=== PATIENT | male | born 1945 | race Two or more races ===

== ENCOUNTER → 2020-01-07 09:49 | Outpatient (BNVA) | payer MEDICARE, SELFPAY | PROVIDERS: PCP Family Medicine; Referring Provider Family Medicine; Visit Provider Internal Medicine Cardiovascular Disease | DX: I48.20 Chronic atrial fibrillation, unspecified (principal); I51.7 Cardiomegaly; Z79.899 Other long term (current) drug therapy | CPT/HCPCS: 93005; 99214 ==

== ENCOUNTER → 2020-01-24 09:32 | Outpatient (REF) | payer MEDICARE, SELFPAY ==
--- NOTE | 2020-01-24 09:37 | ECG_ITS ---
Hook-up date: 2020-01-24 10:25:00 Duration: :28:00 Test Indications: CHRONIC AFIB Medications: [id number] QRS complexes 90 Ventricular ectopics which represent <1 % of total QRS comp. * Supraventricular ectopics which represent % of total QRS comp. * Paced QRS complexs which represent % of total QRS comp. VENTRICULAR ECTOPY 86 Isolated 0 Bigeminal Cycles 2 Couplets 0 Runs 0 Beats in Runs * Beats LONGEST at * BPM at :: -- * Beats FASTEST at * BPM at :: -- SUPRAVENTRICULAR ECTOPY * Isolated * Couplets * Runs * Beats in Runs * Beats LONGEST at * BPM at :: -- * Beats FASTEST at * BPM at :: -- HEART RATES 35 MIN at 03:46:32 2020-01-25 70 AVG 154 MAX at 12:48:37 2020-01-24 LONGEST RR 3.6880 secs at 17:26:03 2020-01-24 S-T LEVELS Channel 1 - 128 mm at 10:25:00 2020-01-24 - 128 mm at 10:25:00 2020-01-24 Channel 2 - 128 mm at 10:25:00 2020-01-24 - 128 mm at 10:25:00 2020-01-24 Channel 3 - 128 mm at 02:94:41 -- - 128 mm at 02:94:41 Basic rhythm Atrial fibrillation No significant pasues greater than 5 seconds. Good rate control with average HR of 70 bpm Rare Premature ventricular complexes Patient did not report any symptoms in the diary Referred By: Floyd Veras Overread By: FLOYD VERAS MD
--- NOTE | 2020-01-24 09:37 | CA_ITS ---
Transthoracic Echocardiogram Patient (Last, First, Middle): Evaristo Rdz L Gender: Male Date of : 1945 Age: 74 Procedure Date: 01/24/2020 Procedure Type: Transthoracic Echocardiogram Location: OP Height: 175.26 cm Weight: 77.11 kg BSA: 1.93 m2 Heart Rate: bpm BP: 126 / 78 mmHg Developer Advocate: EDUARDO Referring MD: Floyd Veras MD Baker Bread: Floyd Veras MD Symptoms: I48.20 - Chronic atrial fibrillation, unspecified Study Quality: Good ECG Rhythm: Atrial Fibrillation Conclusions: - 1. Normal LV systolic function 2. Moderate biatrial enlargement 3. Moderate tricuspid regurgitation 4. Normal RV systolic pressure 5. No pericardial effusion Findings Left Ventricle Normal left ventricular size, thickness, and systolic function. The visually estimated ejection fraction is between 55-60%. Diastolic function is indeterminate on the basis of available data. Right Ventricle Normal right ventricular cavity size. There is normal right ventricular systolic function. Atria Moderate biatrial enlargement. There is no evidence of interatrial shunt. Aortic Valve There is mild thickening of the aortic valve. There is no aortic valve stenosis. There is no aortic valve regurgitation. Mitral Valve There is mild anterior and posterior mitral leaflet thickening. There is trace mitral valve regurgitation. There is no mitral valve stenosis. Pulmonic Valve The pulmonic valve is likely normal. Tricuspid Valve Normal tricuspid valve structure. There is moderate tricuspid valve regurgitation. The right ventricular systolic pressure is normal. Normal right atrial pressure. There is no evidence of pulmonary hypertension. Great Vessels All visible segments of the aorta are normal in size. The pulmonary artery was not well visualized. Venous The inferior vena cava is normal in size and collapses greater than 50% with inspiration. Pericardium/Pleural There is no evidence of pericardial effusion. Prior Study Comparison Changes noted compared to prior study dated: 01/09/2019. Moderate biatrial enlargement noted. Also moderate tricuspid regurgitation noted Measurements 2D Linear Measurements IVSd: 0.95 0.6-0.9/0.6-1.0 cm LVIDd: 4.79 3.9-5.3/4.2-5.9 cm LVIDd Index: 2.48 2.4-3.2/2.2-3.1 cm/m2 LVIDs: 3.16 2.0-3.6 cm LVPWd: 1.02 0.7-1.1 cm Ao Root: 3.20 2.1-3.5 cm LA Diam: 3.90 2.7-3.8/3.0-4.0 cm LAIDs Index: 2.02 1.5-2.3 cm/m2 LV Mass: 207.40 67-162/88-224 g LV Mass Index: 107.46 43-95/49-115 g/m2 LVOT Diam: 2.10 3.0+(-)1.3 cm 2D Systolic Function EF 4C: 62.80 >55% Mitral Valve MV Pk E: 0.66 MV Decel Time: 152.00 E'Lateral: 12.90 E'Medial: 10.40 E/E' Med: 6.30 E/E' Lat: 5.10 PHT: 45.00 MVA PHT: 4.89 Decel Clay: 4.47 Aortic Valve AoV Pk Juan: 0.80 AoV Pk Grad: 3.00 LVOT LVOT Pk Juan: 0.74 LVOT Mn Juan: 0.47 LVOT VTI: 0.14 LVOT Pk Grad: 2.00 LVOT Mn Grad: 1.00 LVOT Diam: 2.10 LVOT Area: 3.46 Diastolic Function MV Pk E: 0.66 E'Medial: 10.40 E/E' Med: 6.30 E' Laterial: 12.90 E/E' Lat: 5.10 Tricuspid Valve TR Pk Juan: 2.88 TR Pk Grad: 33.00 RA Press: 3.00 RVSP: 36.00 Great Vessels Aorta Ao Root-2D: 3.20 2.0-3.7 cm Ao Asc: 2.90 2.1-3.4 cm Updated in Other Vendor System with Status of Final Floyd Veras MD electronically signed on 01/25/2020 2:36:54 PM with status of Final
== END ==
LOC: HO.CARD 09:32
PROVIDERS: Visit Provider Internal Medicine Cardiovascular Disease
DX: I48.20 Chronic atrial fibrillation, unspecified (principal); I51.7 Cardiomegaly
CPT/HCPCS: 93225; 93226; 93306

== ENCOUNTER 2020-05-06 09:43 | Outpatient (REF) | payer MEDICARE, SELFPAY ==
[2020-05-06 10:54] LABS: Estimated Average Glucose 126 mg/dL
[2020-05-06 11:08] LABS: Anion Gap 13 (12-20); Blood Urea Nitrogen 17 mg/dL (9-16); Carbon Dioxide 24 mmol/L (22-29); Chloride 105 mmol/L (96-108); Estimated Glomerular Filt Rate 58; Glucose Fasting 123 mg/dL (60-99); Potassium 4.2 mmol/L (3.3-5.1); Sodium 138 mmol/L (135-145)
== END 2020-05-06 09:44 | disposition home or self-care (01) ==
LOC: HO.10HDL 09:43
PROVIDERS: Visit Provider Family Medicine
DX: I10 Essential (primary) hypertension (principal); E11.9 Type 2 diabetes mellitus without complications
CPT/HCPCS: 36415; 80051; 82565; 82947; 83036; 84520

== ENCOUNTER 2020-11-11 07:54 | Day surgery (SDC) | payer MEDICARE, SELFPAY ==
[2020-11-05 15:24] VITALS: BMI 25.1
[2020-11-11 08:06] VITALS: BP 127/82; PULSE 74; RESP 16; TEMP 36.3; O2SAT 100
[2020-11-11] MEDS: Lactated Ringers 1,000 ML 50 ML IVCONT (08:29)
--- NOTE | 2020-11-11 08:59 | HO.ANESPROP2 ---
[facility] Active Problems Active Problems: All Active Problems (Updated 11/05/20 @ 15:26 by Radha Gunn RN) Chronic atrial fibrillation (Acute) Atrial enlargement, bilateral (Acute) Past Medical History Medical History Atrial enlargement, bilateral Chronic atrial fibrillation COVID-19 vaccine series completed Peptic ulcer Family History Family History Father No problems noted. Mother HTN (hypertension) Surgical History Surgical History H/O colonoscopy History of ankle surgery History of esophagogastroduodenoscopy (EGD) Hx of nasal septoplasty History of Problems with Anesthesia: No Social History Social History Are you a primary childcare director to a significant other at home: No Do you presently have visiting nurse or other home services: No Patient Tobacco Use Status: Never used Tobacco Use of substances other than those prescribed or required for medical reasons: No Have you been hit, kicked, punched, or otherwise hurt by someone within the past year? If so, by whom?: No Are you DNR?: No Advance Directives: No ( states she is HCP but unsure if has official form) Advance Directives Information Provided: Yes ( states she is HCP) Advance Directives on File: No Recently lost weight without trying: No Eating poorly because of decreased appetite: No Nutrition Risks: No Nutritional Risk Meds Allergies Allergy/AdvReac Type Severity Reaction Status Date / Time No Known Allergies Allergy Mild NO KNOWN Unverified 11/29/19 16:28 REACTIONS Exam Exam Date and Time: November 11, 2020 0859 Height,Weight and Vital Signs: Height 5 ft 10 in Weight 79.379 kg Last Vital Signs Temp 97.3 F 11/11/20 08:06 Pulse 74 11/11/20 08:06 Resp 16 11/11/20 08:06 BP 127/82 11/11/20 08:06 Pulse Ox 100 11/11/20 08:06 Airway Mallampati Class: II TM Dist: >3cm Neck ROM: Full Loose/Missing/Broken Teeth: Yes, Upper and Lower Heart: RRR Lungs: CTA Assessment and Plan Assessment Anesthesia Assessment: Anesthesia Plan Discussed and Chart Reviewed Final Anesthetic Review History of Problems with Anesthesia: No NPO: Yes ASA Class: III Final Preanesthetic Review: Meds/Allgs Chart Reviewed, Consent Obtained/Reviewed and Anes Risks/Benef Reviewed Patient Risk: Low Procedure Risk: Low Anesthetic Plan Anesthetic Plan: MAC: Disposition: Standard PACU
--- NOTE | 2020-11-11 09:20 | MHC.SHP ---
Pre-Procedural Eval Section A Date of Service: 11/11/20 The patient is an INPATIENT: No Changes since office visit: No Cold of Flu in the past 2 weeks, No New Medical Problems, No Changes in Medication and No Patient answered all questions The History & Physical has been completed within 30 days and I have reviewed it.: Yes Section B Chief Complaint: screening Allergies: Allergies Allergy/AdvReac Type Severity Reaction Status Date / Time No Known Allergies Allergy Mild NO KNOWN Unverified 11/29/19 16:28 REACTIONS Plan I have reviewed the history and physical and performed a pertinent physical examination on my patient. No changes have occurred unless specified.
--- NOTE | 2020-11-11 09:52 | P.BOP_ITS ---
Brief Operative Note Date of Service: 11/11/20 Pre-op diagnosis: screening Post-op diagnosis: same Procedure: colonoscopy Surgeon: Gonzalez Blake Anesthesia: MAC Was an Medical Dermatologist used for this Procedure?: No Estimated blood loss (mL): 2 Pathology: none sent (polyps) Condition: stable Disposition: PACU
[2020-11-11 09:54] VITALS: BP 93/48; PULSE 62; RESP 18; TEMP 36.7; O2SAT 100
[2020-11-11 10:08] VITALS: BP 117/83; PULSE 62; RESP 18; TEMP 36.7; O2SAT 98
--- NOTE | 2020-11-11 10:49 | OP_ITS ---
SURGEON: Gonzalez Blake MD INDICATIONS: Colon cancer screening. PREOPERATIVE DIAGNOSIS: POSTOPERATIVE DIAGNOSIS: PROCEDURE PERFORMED: Colonoscopy to the terminal ileum with snare polypectomy and biopsy. ESTIMATED BLOOD LOSS: COMPLICATIONS: ANESTHESIA: ASSISTANTS: SPECIMENS: MEDICATIONS: Monitored anesthesia care. DESCRIPTION OF PROCEDURE: History and physical performed. The risks and benefits of the procedure were explained to the patient. Informed consent was obtained. The patient was placed in the left lateral decubitus position. A digital rectal exam was performed and was found to be normal. The Olympus pediatric video colonoscope was introduced into the rectum and advanced to the cecum without difficulty. The cecum was identified by transillumination, palpation, and identification of ileocecal valve. Examination was performed and the scope was removed. He tolerated the procedure well and was taken to recovery area in stable condition. FINDINGS: The terminal ileum was normal. The visualized colonic mucosa was within normal limits without evidence of masses or ulcers. In the cecum, were 2 polyps measuring 5 mm, one was removed with a snare and recovered with biopsy forceps. The other was less than 5 mm and was removed with biopsy forceps. At 70 cm, was a 7 mm polyp, which was removed with a snare and recovered via suction. At 20 cm, was a 6 mm polyp, which was removed with a cold snare. There were multiple hyperplastic appearing polyps in the rectum, which were not removed. Retroflexed examination was normal. There was mild sigmoid diverticulosis. IMPRESSION: Colon polyps. RECOMMENDATION: Follow up the biopsy results. MD EMMANUEL Love/SHAUN / [id number]
== END 2020-11-11 10:55 | disposition home or self-care (01) ==
PROVIDERS: PCP Family Medicine; Visit Provider Internal Medicine Gastroenterology
PROC: 0DJD8ZZ Inspection of Lower Intestinal Tract, Via Natural or Artificial Opening Endoscopic (ICD-10-PCS; CPT 45378; principal; 2020-11-11 09:00)
DX: Z12.11 Encounter for screening for malignant neoplasm of colon (principal); D12.0 Benign neoplasm of cecum; D12.6 Benign neoplasm of colon, unspecified; K63.5 Polyp of colon; K62.1 Rectal polyp; K57.30 Diverticulosis of large intestine without perforation or abscess without bleeding; Z86.010 Personal history of colon polyps
CPT/HCPCS: 45385; 45380; 88305

== ENCOUNTER → 2021-01-08 09:43 | Outpatient (BNVA) | payer MEDICARE, SELFPAY | PROVIDERS: PCP Family Medicine; Visit Provider Internal Medicine Cardiovascular Disease | DX: I48.20 Chronic atrial fibrillation, unspecified (principal); I51.7 Cardiomegaly | CPT/HCPCS: 93005; 99212 ==

== ENCOUNTER → 2022-01-04 13:49 | Outpatient (BNVA) | payer SELFPAY | PROVIDERS: PCP Family Medicine; Visit Provider Internal Medicine | DX: Z02.79 Encounter for issue of other medical certificate (principal) ==

== ENCOUNTER → 2022-04-15 10:57 | Outpatient (BNVA) | payer MEDICARE, SELFPAY | PROVIDERS: PCP Family Medicine; Referring Provider Family Medicine; Visit Provider Internal Medicine Cardiovascular Disease | DX: I48.20 Chronic atrial fibrillation, unspecified (principal); I07.1 Rheumatic tricuspid insufficiency | CPT/HCPCS: 93005; 99212 ==

== ENCOUNTER → 2022-07-02 10:48 | Outpatient (BNVA) | payer SELFPAY | PROVIDERS: PCP Family Medicine; Visit Provider Internal Medicine | DX: Z02.79 Encounter for issue of other medical certificate (principal) ==

== ENCOUNTER → 2023-01-12 10:20 | Outpatient (BNVA) | payer SELFPAY | PROVIDERS: PCP Family Medicine; Visit Provider Physician Assistant | DX: Z02.79 Encounter for issue of other medical certificate (principal) ==

== ENCOUNTER 2023-06-01 10:22 | Outpatient (AMB) | payer MEDICARE, SELFPAY ==
--- NOTE | 2023-06-01 10:44 | A.OFFVIS_ITS ---
Intake Vital Signs 06/01/23 10:45 Height 5 ft 10 in Weight 167 lb 8.821 oz BMI 24.0 BP 130/70 Blood Pressure Location Lt brachial Position Sitting Pulse 79 Intake Visit Reasons: 1 year follow up Intake Note: 1 year follow-up with ekg feeling good not taking blood thinners too expensive Yard Jockey Required: No Allergies No Known Allergies Allergy (Mild, Unverified 11/29/19 16:28) NO KNOWN REACTIONS Medication List - Last Reconciled 06/01/23 by Floyd Veras MD lisinopril 10 mg PO DAILY metoprolol succinate ER 50 mg PO DAILY HPI HPI Comments History of Present Illness Details Evaristo comes for follow-up. He has no new cardiac symptoms. Remains very active. Denies any symptoms of worsening shortness of breath, chest discomfort. No lightheadedness, syncope. No symptoms of palpitations. He said he tried to get Eliquis but was not able to afford it and is not currently on any oral anticoagulation. His blood pressures remained controlled. He denies orthopnea, PND, leg edema, abdominal distension. [facility] Medical History (Updated 06/01/23 @ 11:29 by Floyd Veras MD) HTN (hypertension) Tricuspid regurgitation COVID-19 vaccine series completed Peptic ulcer Atrial enlargement, bilateral Chronic atrial fibrillation Surgical History History of ankle surgery History of esophagogastroduodenoscopy (EGD) H/O colonoscopy Hx of nasal septoplasty Family History Father No problems noted. Mother HTN (hypertension) Social History Are you a primary home care companion to a significant other at home: No Do you presently have visiting nurse or other home services: No Patient Tobacco Use Status: Never used Tobacco Review of Systems Const Denies chills, Denies fatigue, Denies fever(s), Denies frequent falls, Denies weakness, Denies weight gain and Denies weight loss ENT Denies dizziness Card Denies chest pain, Denies leg edema, Denies lightheadedness, Denies palpitations, Denies dyspnea, Denies dyspnea on exertion, Denies orthopnea and Denies other (loss of consciousness) Resp Denies cough, Denies dyspnea and Denies dyspnea on exertion GI Denies hematochezia and Denies change in stool character Musc Denies abnormal gait, Denies muscle weakness, Denies numbness, Denies radiating pain into limb and Denies tingling Neuro Denies abnormal gait, Denies dizziness, Denies frequent falls, Denies numbness, Denies tingling and Denies weakness Endo Denies fatigue and Denies palpitations Physical Exam Vital Signs: Last Vital Signs Pulse 79 06/01/23 10:45 BP 130/70 06/01/23 10:45 BMI result Body Mass Index 24.0 Const General: cooperative, healthy appearing, comfortable, no acute distress, well developed, alert and awake Nutritional Appearance: well nourished Orientation/consciousness: patient oriented x3 Limitations: no limitations HEENT Head: Yes normocephalic and Yes atraumatic Eyes General: appearance normal, both eyes and all related structures Neck Neck: Yes trachea midline, Yes supple and Yes no JVD Carotids: normal carotid upstroke Chest Chest palpation & inspection: normal inspection of the chest Resp Effort & Inspection: normal respiratory effort Auscultation: clear to auscultation bilaterally Cardio Jugular venous distension: no JVD Rate: tachycardic Rhythm: abnormal rhythm irregularly irregular Heart sounds: S1 normal heart sound present and S2 normal heart sound present GI Inspection: Yes normal to inspection Auscultation: normal bowel sounds Skin General skin exam: no rashes or lesions noted and turgor normal Neuro General: patient oriented x3 and no focal motor deficits Extrem General: Yes no clubbing, cyanosis or edema Psych Appearance: grossly normal and well kempt Mental Status: mental status grossly normal Affect: normal affect Thought process: Normal thought process present Office Procedures EKG Details: EKG shows atrial fibrillation controlled ventricular response. 21487-[id number], Complete Assessment & Plan Assessment & Plan (1) Chronic atrial fibrillation: Comment: sees Dr. Veras-last saw 12/2019 and started on toprol for rate control-next appointment 01/08/21 Code(s): I48.20 - Chronic atrial fibrillation, unspecified Plan: Chronic rate control atrial fibrillation this elderly gentleman without any new symptoms. Has failed rhythm control approach in the past. Continue rate control. Importance of medical therapy was discussed continue metoprolol therapy. As he can not take direct oral anticoagulant due to cost issue I have recommended him to be started on warfarin therapy. Discussed the need for warfarin as well as associated requirements for monitoring. He understands agrees. Will schedule him for Coumadin Clinic. Target INR between 2 and 3. Start him on 5 mg daily. (2) HTN (hypertension): Code(s): I10 - Essential (primary) hypertension Plan: Hypertension which is currently well optimized advised to monitor blood pressure at home maintain a log. Goal blood pressure less than 130/84. Low-salt diet was discussed. Importance of compliance with medication was discussed. Will follow up in the clinic in 1 year's time, sooner p.r.n.. Thank you for allowing me to partake in his care Orders: Orders Basic Metabolic Panel Today I48.20 - Chronic atrial fibrillation, unspecified Complete Blood Count no Diff Today I48.20 - Chronic atrial fibrillation, unspecified Prothrombin Time INR Today I48.20 - Chronic atrial fibrillation, unspecified Medications: New warfarin 5 mg PO DAILY 40 tabs 5RF I48.20 - Chronic atrial fibrillation, unspecified Coding Level of Care Code Est Pt Level 4 (15881) Diagnoses Chronic atrial fibrillation I48.20 HTN (hypertension) I10 CPT Codes EKG - CPT: 80564-[id number], Complete ([id number])
[2023-06-01 10:45] VITALS: BP 130/70; PULSE 79; BMI 24.0
== END 2023-06-01 11:58 | disposition home or self-care (01) ==
PROVIDERS: PCP Family Medicine; Visit Provider Internal Medicine Cardiovascular Disease
DX: I48.20 Chronic atrial fibrillation, unspecified (principal); I10 Essential (primary) hypertension
CPT/HCPCS: 93010; 99214

== ENCOUNTER → 2023-06-01 10:22 | Outpatient (BNVA) | payer OTHER, SELFPAY | PROVIDERS: PCP Family Medicine; Visit Provider Internal Medicine Cardiovascular Disease | DX: I48.20 Chronic atrial fibrillation, unspecified (principal); I10 Essential (primary) hypertension | CPT/HCPCS: 93005; 99212 ==

== ENCOUNTER → 2023-07-11 09:52 | Outpatient (BNVA) | payer SELFPAY | PROVIDERS: PCP Family Medicine; Visit Provider Internal Medicine | DX: Z02.79 Encounter for issue of other medical certificate (principal) ==

== ENCOUNTER → 2024-01-23 12:55 | Outpatient (BNVA) | payer SELFPAY | PROVIDERS: Visit Provider Physician Assistant Medical | DX: Z02.79 Encounter for issue of other medical certificate (principal) ==

== ENCOUNTER 2024-01-24 08:14 | Day surgery (SDC) | payer MEDICARE, SELFPAY ==
[2024-01-20 14:03] VITALS: BMI 22.9
[2024-01-24 08:23] VITALS: BP 115/60; PULSE 87; RESP 20; TEMP 36.6; O2SAT 97; BMI 23.3
[2024-01-24] MEDS: Lactated Ringers 1,000 ML 50 ML IVCONT (08:47)
--- NOTE | 2024-01-24 08:57 | MHC.SHP ---
Pre-Procedural Eval Section A - 24 Hr Update-Section A only Date of Service: 01/24/24 Section B - Complete if H&P > 30 days Chief Complaint: screening Details of Present Illness: see H&P no changes Relevant Family History (Specify if Yes): No Relevant Social History: None Present Medications: see Short Stay Collaborative assessment Medical History: No relevant PMH Allergies: Allergies Allergy/AdvReac Type Severity Reaction Status Date / Time No Known Allergies Allergy Mild NO KNOWN Unverified 11/29/19 16:28 REACTIONS Review of Systems Sugical H&P ROS: Negative: Constitution, Cardiovascular, Respiratory, Neurological, Psychiatric, Hem-Onc, Allergic/Immunologic, Gastrointestinal, Genitourinary, Musculoskeletal, Integumentary, Endocrine and Eyes/Ears/Nose/Throat Exam Surgical H&P Exam: Normal: HEENT, Normal: Heart, Normal: Lungs, Normal: Extremities, Normal: Abdomen, Normal: Skin and Normal: Neurological Plan Diagnosis/Plan: Unchanged I have reviewed the history and physical and performed a pertinent physical examination on my patient. No changes have occurred unless specified. Time Spent With Patient Time: Total time managing care of this patient today ____ minutes.
--- NOTE | 2024-01-24 09:10 | HO.ANESPROP2 ---
[facility] Active Problems Active Problems: All Active Problems HTN (hypertension) (Acute) Tricuspid regurgitation (Acute) Chronic atrial fibrillation (Acute) Atrial enlargement, bilateral (Acute) Past Medical History Medical History HTN (hypertension) Tricuspid regurgitation COVID-19 vaccine series completed Peptic ulcer Atrial enlargement, bilateral Chronic atrial fibrillation Functional capacity: independent ambulation Family History Family History Father No problems noted. Mother HTN (hypertension) Family history of problems with anesthesia: No Surgical History Surgical History History of ankle surgery History of esophagogastroduodenoscopy (EGD) H/O colonoscopy Hx of nasal septoplasty History of Problems with Anesthesia: No Social History Social History Are you a primary home care nurse to a significant other at home: No Do you presently have visiting nurse or other home services: No Patient Tobacco Use Status: Never used Tobacco Have you been hit, kicked, punched, or otherwise hurt by someone within the past year? If so, by whom?: No Are you DNR?: No Advance Directives: No Advance Directives Information Provided: Yes Meds Allergies Allergy/AdvReac Type Severity Reaction Status Date / Time No Known Allergies Allergy Mild NO KNOWN Unverified 11/29/19 16:28 REACTIONS Active Medications: Current Medications Lactated Ringer's (Lr) 1,000 mls @ 50 mls/hr IVCONT .Q20H BAY Last Admin: 01/24/24 08:47 Dose: 50 mls/hr Home Medications ?Medication ?Instructions ?Recorded ?Confirmed ?Last Taken ?Type lisinopril 10 mg tablet 10 mg PO DAILY 04/15/22 01/20/24 Unknown History dabigatran etexilate 150 mg capsule 150 mg PO BID 01/20/24 01/20/24 01/03/24 History Exam Height,Weight and Vital Signs: Height 5 ft 10 in Weight 73.56 kg Last Vital Signs Temp 98 F 01/24/24 08:23 Pulse 87 01/24/24 08:23 Resp 20 01/24/24 08:23 BP 115/60 01/24/24 08:23 Pulse Ox 97 01/24/24 08:23 O2 Del Method Room Air 01/24/24 08:23 Airway Mallampati Class: I TM Dist: >3cm Neck ROM: Full Heart: irreg. Lungs: CTA Assessment and Plan Assessment Anesthesia Assessment: Anesthesia Plan Discussed and Smoking Cess. Discussed Final Anesthetic Review Family History of Problems with Anesthesia: No History of Problems with Anesthesia: No NPO: Yes ASA Class: II Final Preanesthetic Review: Meds/Allgs Chart Reviewed, Consent Obtained/Reviewed and Anes Risks/Benef Reviewed Patient Risk: Low Procedure Risk: Low Anesthetic Plan Anesthetic Plan: MAC: Disposition: Standard PACU
[2024-01-24 09:30] VITALS: BP 77/35; PULSE 90; RESP 16; TEMP 36.2; O2SAT 96
[2024-01-24 09:50] VITALS: BP 105/57; PULSE 77; RESP 18; TEMP 36.2; O2SAT 98
--- NOTE | 2024-01-24 10:11 | OP_ITS ---
DATE OF SERVICE: 01/24/2024 SURGEON: Gonzalez Blake MD INDICATIONS: Colon cancer screening. PREOPERATIVE DIAGNOSIS: POSTOPERATIVE DIAGNOSIS: PROCEDURE PERFORMED: Colonoscopy to the terminal ileum. ESTIMATED BLOOD LOSS: COMPLICATIONS: ANESTHESIA: Medications, monitored anesthesia care. ASSISTANTS: SPECIMENS: DESCRIPTION OF PROCEDURE: A history and physical was performed. The risks and benefits of the procedure were explained to the patient. Informed consent was obtained. The patient was placed in the left lateral decubitus position. A digital rectal exam was performed and was found to be normal. The Olympus pediatric video colonoscope was introduced into the rectum and advanced to the cecum. The cecum was identified by transillumination, palpation, and identification of the ileocecal valve. Examination was performed. The scope was removed. He tolerated the procedure well and was returned to the recovery unit in stable condition. FINDINGS: The terminal ileum was normal. The visualized colonic mucosa was normal. The quality of the prep was good. There was some liquid stool and undigested food material that was washed and suctioned as best possible. This limited the sensitivity examination for detection of small polyps. No polyps were identified. There was mild sigmoid diverticulosis. Retroflexed examination was normal. IMPRESSION: Normal colonoscopy. RECOMMENDATIONS: 1. Follow up as needed. 2. Repeat colonoscopy is recommended in 10 years for average-risk individuals. This is optional based on the patient's current age. MD EMMANUEL Love/SHAUN / [id number]
--- NOTE | 2024-01-24 10:42 | HO.POSTANES ---
Post Anesthesia Evaluation Post Anesthesia Evaluation Date of Service: 01/24/24 Vital Signs: Vital Signs Temp Pulse Resp BP Pulse Ox O2 Del Method 01/24/24 09:50 97.1 F 77 18 105/57 L 98 Room Air 01/24/24 09:30 97.1 F 90 16 77/35 L 96 Room Air 01/24/24 08:23 98 F 87 20 115/60 97 Room Air Anesthesia: Monitored Mental Status: Awake Pain Control: Satisfactory Nausea/Vomiting: None Hydration: Adequate Anesthesia-Related Issues: No Anes. Related Issues
== END 2024-01-24 10:20 | disposition home or self-care (01) ==
PROVIDERS: Visit Provider Internal Medicine Gastroenterology
PROC: 0DJD8ZZ Inspection of Lower Intestinal Tract, Via Natural or Artificial Opening Endoscopic (ICD-10-PCS; CPT 45378; principal; 2024-01-24 09:20)
DX: Z12.11 Encounter for screening for malignant neoplasm of colon (principal); Z86.0101 Personal history of adenomatous and serrated colon polyps; K57.30 Diverticulosis of large intestine without perforation or abscess without bleeding; K27.9 Peptic ulcer, site unspecified, unspecified as acute or chronic, without hemorrhage or perforation; Z86.19 Personal history of other infectious and parasitic diseases; I10 Essential (primary) hypertension; I48.91 Unspecified atrial fibrillation; Z79.01 Long term (current) use of anticoagulants; Z79.899 Other long term (current) drug therapy; Z98.890 Other specified postprocedural states
CPT/HCPCS: G0105; J2003; J2371; J2704

== ENCOUNTER → 2024-07-10 12:11 | Outpatient (BNVA) | payer SELFPAY | PROVIDERS: Visit Provider Physician Assistant Medical | DX: Z02.79 Encounter for issue of other medical certificate (principal) ==

== ENCOUNTER → 2024-07-17 10:53 | Outpatient (REF) | payer MEDICARE, SELFPAY ==
--- NOTE | 2024-07-17 10:56 | CA_ITS ---
Transthoracic Echocardiogram Patient (Last, First, Middle): Evaristo Rdz L Gender: Male Date of : 1945 Age: 78 Procedure Date: 07/17/2024 Procedure Type: Transthoracic Echocardiogram Location: OP Height: 175.26 cm Weight: 74.84 kg BSA: 1.90 m2 Heart Rate: bpm BP: 110 / 60 mmHg Geographic Information Systems Manager: TO Referring MD: Xiomara Rowe MOLD SHOP SUPERVISORAngel Symptoms: I48.20 - Chronic atrial fibrillation, unspecified Study Quality: Adequate ECG Rhythm: Atrial Fibrillation Conclusions: - The left ventricular systolic function is normal. The calculated ejection fraction is 57% by biplane method. - Severe biatrial enlargement. - There is mild to moderate tricuspid valve regurgitation. Findings Left Ventricle Normal left ventricular cavity size. There is normal left ventricular wall thickness. The left ventricular systolic function is normal. The calculated ejection fraction is 57% by biplane method. There is no evidence of regional wall motion abnormalities. Diastolic function is indeterminate on the basis of available data. Right Ventricle Mildly increased right ventricular cavity size. There is normal right ventricular systolic function. Atria Severe biatrial enlargement. Aortic Valve There is a normal trileaflet aortic valve. There is no aortic valve stenosis. There is no aortic valve regurgitation. Mitral Valve The mitral valve appears normal. There is trace mitral valve regurgitation. There is no mitral valve stenosis. Pulmonic Valve The pulmonic valve is likely normal. Tricuspid Valve There is mild to moderate tricuspid valve regurgitation. There is no evidence of pulmonary hypertension. Great Vessels The asc aorta is normal in size. Venous The inferior vena cava is normal in size and collapses greater than 50% with inspiration. Pericardium/Pleural There is no evidence of pericardial effusion. Prior Study Comparison No significant change compared to prior study dated: 01/24/2020. Measurements 2D Linear Measurements IVSd: 0.88 0.6-0.9/0.6-1.0 cm LVIDd: 4.63 3.9-5.3/4.2-5.9 cm LVIDd Index: 2.44 2.4-3.2/2.2-3.1 cm/m2 LVIDs: 2.92 2.0-3.6 cm LVPWd: 0.93 0.7-1.1 cm LA Diam: 4.60 2.7-3.8/3.0-4.0 cm LAIDs Index: 2.42 1.5-2.3 cm/m2 LV Mass: 174.16 67-162/88-224 g LV Mass Index: 91.66 43-95/49-115 g/m2 LVOT Diam: 2.20 3.0+(-)1.3 cm 2D Systolic Function EF 4C: 53.50 >55% EF 2C: 61.60 >55% EF BiP: 57.40 >55% Mitral Valve MV Pk E: 0.63 MV Decel Time: 232.00 E'Lateral: 10.60 E'Medial: 9.28 E/E' Med: 6.70 E/E' Lat: 5.90 PHT: 68.00 MVA PHT: 3.24 Decel [place]: 2.75 Aortic Valve AoV Pk Juan: 0.85 AoV Pk Grad: 3.00 LVOT LVOT Pk Juan: 0.72 LVOT Mn Juan: 0.43 LVOT VTI: 0.14 LVOT Pk Grad: 2.00 LVOT Mn Grad: 1.00 LVOT Diam: 2.20 LVOT Area: 3.80 Diastolic Function MV Pk E: 0.63 E'Medial: 9.28 E/E' Med: 6.70 E' Laterial: 10.60 E/E' Lat: 5.90 Right Ventricle TAPSE (mm): 17.50 TVS' Juan: 12.00 Tricuspid Valve TR Pk Juan: 2.61 TR Pk Grad: 27.00 RA Press: 3.00 RVSP: 30.00 Great Vessels Aorta Sinus of Valsalva: 3.37 2.0-3.5 cm Ao Asc: 3.00 2.1-3.4 cm Updated in Other Vendor System with Status of Final Adiel Issa MD electronically signed on 07/19/2024 11:35:05 AM with status of Final
--- OUTSIDE RECORDS SUMMARY | 2024-07-17 12:36 | XMS_ITS | Patient Health Record ---
Author Organization [facility] Address [address] [place] [address] Care Team Providers Care Case Technician Name Role Phone Cam Rivas M.D Primary Care Provider Unavailable Gonzalez lBake Jr Unavailable [phone] Allergies No Known Allergies Reason For Referral No Information Medications Medication SIG (Take, Route, Frequency, Duration) Notes Start Date End Date Status Dabigatran Etexilate Mesylate 150 MG Oral for 30 Active Metoprolol Succinate ER 50 MG TAKE 1 TABLET BY MOUTH EVERY DAY Oral for 90 Active Lisinopril 10 MG TAKE 1 TABLET BY OMAR TH EVERY DAY Oral for 90 Active MiraLax (colon prep) 8.3 ounce ((238) grams mixed with Gatorade or Crystal Light orally begin at 5:00 p.m. the day before the procedure for 1 day 10/15/2020 Active Clotrimazole-Betamethasone 1-0.05 % External for 30 Active Immunizations Vaccine Route Administration Date Status Comme nts Influenza Unknown 12/13/2019 Administered Influenza Unknown 01/25/2023 Administered Social History Tobacco Use: Social History Observation Description Date Details (start date - stop date) Current Smoker NA - NA Tobacco Use/Smoking Question Answer Notes Patient is a current smoker Alcohol Screen Question Answer Notes Did you have a drink containing alcohol in the p ast year? No Points 0 Interpretation Negative Problems Problem Type SNOMED Code ICD Code Onset Dates Problem Status W/U Status Risk Notes Problem 157621662 Colon cancer screening (Z12.11) Active confirmed Problem 672113706 halfway (current) use of anticoagulants (Z79.01) Active confirmed Problem 313903442 Encounter for other preprocedural examination (Z01.818) Active confirmed Problem Diverticulosis of sigmoid colon (355645477) Diverticulosis of sigmoid colon (K57.30) Active confirmed Vital Signs Temperature 98.6 degrees Fahrenheit 12/14/2023 Blood pressure diastolic 00 mm Hg 12/14/2023 Height 70 in 12/14/2023 Blood pressure systolic 000 mm Hg 12/14/2023 Weight 159 lb 8 oz lbs 12/14/2023 BMI 22.88 kg/m2 12/14/2023 Encounters Encounter Location Date Provider Diagnosis [facility] [place] [facility] [address], [place] [id number] 01/24/2024 Gonzalez Blake Jr Colon cancer screening Z12.11 and Personal history of colonic polyps Z86.0100 [facility] [address] [place] [address] 12/14/2023 Gonzalez Blake Jr halfway (current) use of anticoagulants Z79.01 and Colon cancer screening Z12.11 Assessments Encounter Date Diagnosis (ICD Code) Assessment Notes Treatment Notes Treatment Clinical Notes Section Notes 01/24/2024 Colon cancer screening (ICD-10 - Z12.11) 01/24/2024 Personal history of colonic polyps (ICD-10 - Z86.0100) 12/14/2023 Colon cancer screening (ICD-10 - Z12.11) Colonoscopy material was printed We discussed colonoscopy today. We discussed risks and benefits of the procedure today. He understands these and agrees to proceed. This will be scheduled at his convenience. He is advised to stop Pradaxa 3 days before the procedure. 12/14/2023 superintendent terminal (current) use of anticoagulants (ICD-10 - Z79.01) We discussed colonoscopy today. We discussed risks and benefits of the procedure today. He understands these and agrees to proceed. This will be scheduled at his convenience. He is advised to stop Pradaxa 3 days before the procedure. Plan Of Treatment Future Test Test Name Order Date COLONOSCOPY 10/15/2020 COLONOSCOPY 12/14/2023 Insurance Providers Payer Name Payer Address Payer Phone Subscriber Number Group Number Insured Name Patient Relationship to Insured Coverage Start Date Coverage End Date [facility] [address] [place], [place] [phone] [id number] MALINDA BRITTON Self - patient is the insured MEDICARE OF [facility] [address] [place] [address] [id number] MALINDA BRITTON Self - patient is the insured Medical (General) History Medical History History ICD Code Atrial fibrillation Peptic ulcer disease, upper endoscopy , positive H. pylori, treated with Prevpac. Colonoscopy 11/11/20, multiple tubular ad enomas, three-year followup Surgical History Surgery Date(Month/Year) bone spur on ankle
--- OUTSIDE RECORDS SUMMARY | 2024-07-17 12:36 | XMS_ITS ---
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 (Z79.01) Active confirmed Vital Signs Temperature 98.6 degrees Fahrenheit 12/14/19 24 Blood pressure systolic 000 mm Hg 10/02/20 24 Blood pressure diastolic 00 mm Hg 024 Height 70 in 12/14/2023 Weight 159 lb 8 oz lbs 12/14/2023 BMI 22.88 kg/m2 12/14/2023 Encounters Encounter Location Date Provider Diagnosis [facility] [address] [place] [address] 12/14/2023 Gonzalez Blake Jr bath mixer (current) use of anticoagulants Z79.01 and Colon cancer screening Z12.11 Assessments Encounter Date Diagnosis (ICD Code) Assessment Notes Treatment Notes Treatment Clinical Notes Section Notes 12/14/2023 bath mixer (current) use of anticoagulants (ICD-10 - Z79.01) We discussed colonoscopy today. We discussed risks and benefits of the procedure today. He understands these and agrees to proceed. This will be scheduled at his convenience. He is advised to stop Pradaxa 3 days before the procedure. 12/14/2023 Colon cancer screening (ICD-10 - Z12.11) Colonoscopy material was printed We discussed colonoscopy today. We discussed risks and benefits of the procedure today. He understands these and agrees to proceed. This will be scheduled at his convenience. He is advised to stop Pradaxa 3 days before the procedure. Plan Of Treatment Treatment Notes Assessment Notes Colon cancer screening Colonoscopy mater ial was printed Future Test Test Name Order Date COLONOSCOPY 12/14/2023 Next Appt Details Follow Up: 1 Year, Reason: Progress Notes * MALINDA BRITTON LDOB:1945 (78 yo M)Acc No.[id number]:12/14/2023 Progress Notes Patient:?MALINDA BRITTON Provider:?Gonzalez Blake MD :1945???Age:78 Y???Sex:Male West e:12/14/2023 Address:[facility] [address] [facility] Pcp:Vitaly Guzman Subjective: * Chief Complaints: * ???1. Patient presents today for a colon screening. * HPI: ???New symptom(s):? The patient is a pleasant 78-year-old man seen today for his preoperative colonoscopy visit. He has a history of polyps and last underwent colonoscopy in 2020 with removal of multiple adenomas. Three-year followup is due. He has no rectal bleeding or change in his bowel habits. * ROS:?General/Constitutional:?Change in appetite?denies.?Fatigue?denies.?ENT:?Patient denies?difficulty swallowing.?Respiratory:?Patient denies?shortness of breath.?Cardiovascular:?Patient denies?chest pain.?Gastrointestinal:?Comments?See HPI for details.?Genitourinary:?Difficulty urinating?denies.?Incontinence?denies.?Musculoskeletal:?Patient denies?muscle aches.?Skin:?Patient denies?pruritis.?Neurologic:?Patient denies?low back pain.?Psychiatric:?Patient denies?mental or physical abuse.? * Medical History:?Atrial fibr illation, Peptic ulcer disease, upper endoscopy , positive H. pylori, treated with Prevpac., Colonoscopy 11/11/20, multiple tubular adenomas, three-year followup. * Surgical History:?bone spur on ankle . * Family History:?Father: dece ased.?Mother: .? No history of colon polyps, colon cancer or liver cancer. * Social History:?Tobacco Use:?Tobacco Use/Smoking?Patient is a?current smoker.?Drugs/Alcohol:?Alcohol Screen?Did you have a drink containing alcohol in the past year??No,?Points?0,?Interpretation?Negative.?Miscellaneous:?Marital status: single. Occupation: retired. * Medications:?Taking MiraLax (colon prep) 8.3 ounce ((238) grams mixed with Gatorade or Crystal Light orally begin at 5:00 p.m. the day before the procedure, Taking Clotrimazole-Betamethasone 1-0.05 % Cream External , Taking Lisinopril 10 MG Tablet TAKE 1 TABLET BY MOUTH EVERY DAY Oral , Taking Dabigatran Etexilate Mesylate 150 MG Capsule Oral , Taking Metoprolol Succinate ER 50 MG Tablet Extended Release 24 Hour TAKE 1 TABLET BY MOUTH EVERY DAY Oral , Medication List reviewed and reconciled with the patient * Allergies:?N.K.D.A. Objective: * Vitals:?Wt: 159 lb 8 oz, Ht: 70 in, BMI:22.88 Index, BP: 000/00 mm Hg, Temp: 98.6. * Examination: ???General Examination: ?GENERAL APPEARANCE:?in no acute distress.?HEAD:?normocephalic.?EYES:?sclera non-icteric.?ORAL CAVITY:?mucosa moist.?NECK/THYROID:?no lymphadenopathy.?SKIN:?anicteric.?HEART:?Irregular S1 and S2.?LUNGS:?clear to auscultation bilaterally.?CHEST:?normal shape and expansion.?ABDOMEN:?soft, nontender, nondistended, bowel sounds present, no organomegaly .?EXTREMITIES:?no clubbing, cyanosis, or edema.?PSYCH:?cognitive function intact.? Assessment: * Assessment: 1.?bath mixer (current) use o f anticoagulants - Z79.01 (Primary)?2.?Colon cancer screening - Z12.11? We discussed colonoscopy tod ay. We discussed risks and benefits of the procedure today. He understands these and agrees to proceed. This will be scheduled at his convenience. He is advised to stop Pradaxa 3 days before the procedure. Plan: * Treatment: Notes: Colonoscopy material was printed?? * Preventive Medicine:? ??Counseling:?Smoking?Patient counseled on the dangers of tobacco use and urged to quit.?12/14/2023,?Relapse prevention:?Discussed the possibility of negative mood or depression after quitting..? ??Screenings:?Fall Risk Screening?Fall Risk Assessment:?No falls in the past year.? * Follow Up:?1 Year * * Sign off status: Completed true * Provider:?Gonzalez Blake MD Date:?1 Generated for Printi dae/Christopher/eTransmitting on:?07/17/2024 12:36 PM EDT History and Physical Notes * HPI (History of Present Illness) Category Sub-Category Detail Notes Category Not es New symptom(s) The patient i s a pleasant 78-year-old man seen today for his preoperative colonoscopy visit. He has a history of polyps and last underwent colonoscopy in 2020 with removal of multiple adenomas. Three-year followup is due. He has no rectal bleeding or change in his bowel habits. Examination Category Sub-Category Detail Notes Category Not es General Examination GENERAL APPEARANCE: in no acute di stress HEAD: normocephalic EYES: sclera non-icteric NECK/THYROID: no lymphadenopathy HEART: Irregular S1 and S2 CHEST: normal shape and exp ansion LUNGS: clear to auscultatio n bilaterally ABDOMEN: soft, nontender, non distended, bowel sounds present, no organomegaly SKIN: anicteric EXTREMITIES: no clubbing, cyanosi s, or edema PSYCH: cognitive function i ntact ORAL CAVITY: mucosa moist
--- OUTSIDE RECORDS SUMMARY | 2024-07-17 12:36 | XMS_ITS | Clinical Summary ---
Author Organization [employer] Address [address] [place] [address] Care Team Providers Care Medical Reimbursement Specialist Name Role Phone Unavailable Primary Care Provider Unavailabl e Allergies No known active allergies Medications lisinopril 10 MG tablet Take 10 mg by mouth Once per day. 4 Active metoprolol succinate XL (Toprol-XL) 50 MG 24 hr tablet Take 50 mg by mouth Once per day. 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, in early remission Hypertension 12/15/2023 Prediabetes 09/23/2022 Longstanding persistent atrial fibrillation 09/11 Encounters Date Type Department Care Team Description 07/06/2024 10:00 AM EDT Office Visit [facility] [address] [place] [address] Rajinder Washington 06/22/2024 Telephone [facility] [address] [place], [place] [phone] Julian Washingtonjasmin 06/08/2024 10:30 AM EDT Office Visit [facility] [address] Julian Washingtonjasmin 05/21/2024 Telephone [facility] [address] Julian Washingtonjamilamarielena payment for services from Last 3 Months Social History Tobacco Use Types Packs/Day Years Used Date Smoking Tobacco: Every Day Cigarettes Passive Smoke Exposure: Never Smokeless Tobacco: Never Tobacco Cessation:Ready to Q uit: Not Asked; Counseling Given: Not Answered Sex and Gender Information Value Date Recorded Sex Assigned at Male 01/11/2022 10:20 AM EDT Legal Sex Male 10:20 AM EDT Gender Identity Male 01/11/2022 10:20 AM EDT Sexual Orientation Straight 01/11/2022 10 :20 AM EDT Last Filed Vital Signs Vital Sign Reading Time Taken Comments Blood Pressure 130/70 12/15/2023 11:09 AM EDT Pulse 65 07/14/2023 10:58 AM EDT Temperature - - Respiratory Rate - - Oxygen Saturation - - Inhaled Oxygen Concentration - - Weight - - Height - - Body Mass Index - - Plan of Treatment Health Maintenance Due Date Last Done Comments Depression Screening 1945 Lipid Panel 1945 SDOH Screening 1945 Alcohol/Substance Use Screening 1959 Hepatitis C Screening 07/26/1965 Zoster Vaccines (1 of 2) 07/26/1997 Dental X-Ray: Bitewings 06/05/2021 06/05/19, 09/01/2017, 01/01/2015, Additional history exists RSV Patients and Patients Aged 60 years or older (1 - 1-dose 75+ series) 07/26/2022 COVID-19 Vaccine ( season) 2023 12/24/2022, 02/11/2021, 08/04/2020, Additional history exists Dental Oral Exam 01/15/2024 07/14/2023, , 09/01/2017, Additional history exists Dental Prophylaxis 01/15/2024 07/14/2023, 0 08/22/2020, 08/14/2008 Diabetes: Hemoglobin A1C 04/02/2025 04/02/2024 Tobacco Screening 07/06/2025 07/06/2024 Dental X-Ray: Full Mouth 08/25/2026 024, 11/27/2020, 06/04/2020, Additional history exists DTaP/Tdap/Td Vaccines (2 - Td or Tdap) 04/02/2034 04/02/2024 Pneumococcal Vaccine: 50+ Years Completed 09/22/2022 Influenza Vaccine Completed 04/02/2024, , 12/24/2022, Additional history exists HIB Vaccines Aged Out No longer eligi ble based on patient's age to complete this topic HPV Vaccines Aged Out No longer eligi ble based on patient's age to complete this topic Hepatitis A Vaccines Aged Out No long er eligible based on patient's age to complete this topic Hepatitis B Vaccines Aged Out No long er eligible based on patient's age to complete this topic IPV Vaccines Aged Out No longer eligi ble based on patient's age to complete this topic Meningococcal Vaccine Aged Out No dipak miracle eligible based on patient's age to complete this topic RSV under 20 months Aged Out No longe r eligible based on patient's age to complete this topic Rotavirus Vaccines Aged Out No longer eligible based on patient's age to complete this topic Procedures Procedure Name Priority Date/Time Associated Diagnosis Comments DENTURE IMPRESSION Routine 07/06/2024 10 :00 AM EDT DENTURE IMPRESSION Routine 06/08/2024 10 :30 AM EDT PANORAMIC RADIOGRAPHIC IMAGE Routine 08/25/2023 10:00 AM EDT Full PROPHYLAXIS - ADULT Routine 024 11:00 AM EDT PERIODIC ORAL EVALUATION - ESTABLISHED PATIENT Routine 07/14/2023 11:00 AM EDT INTRAORAL - COMPLETE SERIES OF RADIOGRAPHIC IMAGES Routine 06/04/2020 12:00 AM EDT from Last 3 Months or Most Recently Relevant to Health Maintenance Insurance DENTAL - [facility] PPO
--- OUTSIDE RECORDS SUMMARY | 2024-07-17 12:36 | XMS_ITS | Encounter Summary ---
Author Organization [employer] Address [address] [place] [address] Care Team Providers Care Compliance Paralegal Name Role Phone Unavailable Primary Care Provider Unavailabl e Reason for Visit * Reason Onset Date Comments payment for services 05/21/2024 Encounter Details Date Type Department Care Team ([facility] st Contact Info) Description 05/21/2024 Telephone [facility] [address] [place] [address] Mary Lou Washingtonanpreet [address] [place], [place] [phone] payment for services Social History Tobacco Use Types Packs/Day Years Used Date Smoking Tobacco: Every Day Cigarettes Passive Smoke Exposure: Never Smokeless Tobacco: Never Sex and Gender Information Value Date Recorded Sex Assigned at Male 01/11/2022 10:20 AM EDT Legal Sex Male 10:20 AM EDT Gender Identity Male 01/11/2022 10:20 AM EDT Sexual Orientation Straight 01/11/2022 10 :20 AM EDT documented as of this encounter Miscellaneous Notes * Telephone Encounter - Roslyn Noriega - 05/21/2024 12:23 PM EDT Patient is coming in on 05/24 for impression . Per approval scanned in chart patient has out of pocket expense as Shobha is out of network for [facility]. Asmita is reaching out to patient to discuss payment on date of service DR documented in this encounter Plan of Treatment Not on file documented as of this encounter Visit Diagnoses Not on filedocumented in this encounter
--- OUTSIDE RECORDS SUMMARY | 2024-07-17 12:36 | XMS_ITS | Encounter Summary ---
Author Organization [employer] Address [address] [place] [address] Care Team Providers Care Technical Rep Name Role Phone Unavailable Primary Care Provider Unavailabl e Encounter Details Date Type Department Care Team (Latest Contact Info) Description 08/22/2020 Abstract [facility] CONVERSIONS Dental, Provider, DDS Social History Tobacco Use Types Packs/Day Years Used Date Smoking Tobacco: Never Assessed Sex and Gender Information Value Date Recorded Sex Assigned at Male 01/11/2022 10:20 AM EDT Legal Sex Male 10:20 AM EDT Gender Identity Male 01/11/2022 10:20 AM EDT Sexual Orientation Straight 01/11/2022 10 :20 AM EDT documented as of this encounter Plan of Treatment Not on file documented as of this encounter Visit Diagnoses Not on filedocumented in this encounter
--- OUTSIDE RECORDS SUMMARY | 2024-07-17 12:36 | XMS_ITS ---
Author Organization [facility] Address [address] [place] [address] Care Team Providers Care Terminal Superintendent Name Role Phone Cam Rivas M.D Primary Care Provider Gonzalez Haddad Jr REASON FOR VISIT screening Encounters Encounter Location Date Provider Diagnosis [facility] [address] [place] [phone] 01/24/2024 Gonzalez Blake Jr Colon cancer screening Z12.11 and Personal history of colonic polyps Z86.0100 Assessments Encounter Date Diagnosis (ICD Code) Assessment Notes Treatment Notes Treatment Clinical Notes Section Notes 01/24/2024 Colon cancer screening (ICD-10 - Z12.11) 01/24/2024 Personal history of colonic polyps (ICD-10 - Z86.0100) Plan Of Treatment No Information Progress Notes * MALINDA BRITTON LDOB:1945 (78 yo M)Acc No.[id number]:01/24/2024 COLON WITH MAC Patient:?MALINDA BRITTON Provider:?Gonzalez Blake MD :1945???Age:78 Y???Sex:Male West e:01/24/2024 Address:[address] [facility] Pcp:Vitaly Guzman Subjective: * Chief Complaints: * ???1. Screening. * Medical History:? Objective: * Vitals:? Assessment: * Assessment: 1.?Colon cancer screening - Z12.11 (Primary)???2.?Personal history of colonic polyps - Z86.0100??? Plan: * Treatment: * Procedure Codes:?76312 DIAGN OSTIC COLONOSCOPY, 0529F INTRVL 3+YRS PTS CLNSCP DOCD, 0528F RCMND FLW-UP 10 YRS DOCD * * The named appointment provid er may or may not be the originator of this progress note, and it is not deemed complete until electronically signed by the appointment provider. Sign off status: Pending * Provider:?Gonzalez Blake MD Date:?1 03/25/2023 Generated for Misti pearl/Christopher/Daijaitting on:?07/17/2024 12:36 PM EDT
== END ==
LOC: HO.CARD 10:53
PROVIDERS: PCP Family Medicine; Visit Provider Nurse Practitioner Family
DX: I48.20 Chronic atrial fibrillation, unspecified (principal); I51.7 Cardiomegaly
CPT/HCPCS: 93306

== ENCOUNTER → 2024-07-17 10:56 | Outpatient (BNV) | payer MEDICARE, SELFPAY | PROVIDERS: PCP Family Medicine; Visit Provider Internal Medicine | DX: I51.7 Cardiomegaly (principal); I36.1 Nonrheumatic tricuspid (valve) insufficiency | CPT/HCPCS: 93306 ==

== ENCOUNTER 2024-07-30 09:56 | Outpatient (AMB) | payer MEDICARE, SELFPAY ==
[2024-07-30 10:01] VITALS: BP 90/72; PULSE 57; BMI 23.9
--- NOTE | 2024-07-30 10:01 | MHC.OFFVIS ---
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 His last visit was a year ago. He reports no hospital admissions or health changes since then. The patient is maintained on Xarelto, avoiding warfarin due to clinic visits for INR monitoring. He tolerates Xarelto well, with no bleeding symptoms, though he has cost concerns. His atrial fibrillation is asymptomatic, with no palpitations or chest pain. He is physically active and reports no exercise limitations. He quit smoking and drinking previously. [facility] Medical History HTN (hypertension) Tricuspid regurgitation COVID-19 vaccine series completed Peptic ulcer Atrial enlargement, bilateral Chronic atrial fibrillation Surgical History History of ankle surgery History of esophagogastroduodenoscopy (EGD) H/O colonoscopy Hx of nasal septoplasty Family History Father No problems noted. Mother HTN (hypertension) Social History Are you a primary pet caregiver to a significant other at home: No Do you presently have visiting nurse or other home services: No Patient Tobacco Use Status: Never used Tobacco Review of Systems Const All systems reviewed & are unremarkable except as noted in HPI and below ENT Denies dizziness Card Denies chest pain, Denies chest pain at rest, Denies chest pain with activity, Denies rapid heart rate, Denies pedal edema, Denies edema, Denies leg edema, Denies lightheadedness, Denies palpitations, Denies dyspnea, Denies dyspnea on exertion and Denies orthopnea Resp Denies cough, Denies dyspnea and Denies dyspnea on exertion GI Denies hematochezia and Denies change in stool character Musc Denies abnormal gait, Denies limited range of motion, Denies muscle cramps, Denies muscle weakness, Denies numbness, Denies radiating pain into limb, Denies stiffness and Denies tingling Neuro Denies abnormal gait, Denies dizziness, Denies numbness and Denies tingling Endo Denies palpitations Physical Exam Vital Signs: Last Vital Signs Pulse 57 07/30/24 10:01 BP 90/72 07/30/24 10:01 BMI result Body Mass Index 23.9 Const General: cooperative, healthy appearing, comfortable and no acute distress Orientation/consciousness: patient oriented x3 Neck Neck: Yes normal visual inspection Resp Effort & Inspection: normal respiratory effort Auscultation: clear to auscultation bilaterally, no rales, no rhonchi and no wheezes Cardio Rate: regular rate Rhythm: abnormal rhythm Heart sounds: S1 normal heart sound present, S2 normal heart sound present, no gallops, no murmurs and no rubs Neuro General: patient oriented x3 Extrem General: Yes normal to inspection, No no pedal edema and No calf tenderness Psych Appearance: grossly normal Mental Status: mental status grossly normal Speech and movement: Normal speech and movement present Office Procedures EKG Details: today, read by me, atrial fibrillation, slow ventricular response, rate 57, Qtc 379ms [id number], Complete Results Reviewed Results Reviewed: Echocardiogram 07/17/24 Conclusions: - The left ventricular systolic function is normal. The calculated ejection fraction is 57% by biplane method. - Severe biatrial enlargement. - There is mild to moderate tricuspid valve regurgitation. Assessment & Plan Assessment & Plan (1) Chronic atrial fibrillation: Comment: sees Dr. Veras-last saw 12/2019 and started on toprol for rate control Code(s): I48.20 - Chronic atrial fibrillation, unspecified Category: Medical Plan: Known chronic atrial fibrillation that is treated with heart rate control. He is on metoprolol XL 50 mg daily and he is on Xarelto 20 mg daily for anticoagulation. EKG done today showing atrial fibrillation with slow ventricular response, rate 57, asymptomatic. He reports good activity tolerance with no concerning symptoms. Will continue current med management. Recommend biannual renal function and CBC. (2) HTN (hypertension): Code(s): I10 - Essential (primary) hypertension Category: Medical Plan: Blood pressure goal less than 130/80. On low side today, asymptomatic. No med changes made, continue lisinopril and metoprolol. Need for good hydration reviewed. (3) Tricuspid regurgitation: Code(s): I07.1 - Rheumatic tricuspid insufficiency Category: Medical Plan: Recent echo showing EF 57% [id number] TR. No signs of heart failure on exam. Will monitor with periodic echoes. (4) Atrial enlargement, bilateral: Code(s): I51.7 - Cardiomegaly Category: Medical Plan: Recent echo showing severe biatrial enlargement. Plan I discussed with the patient the continued use of Xarelto for atrial fibrillation management, given his current good tolerance and its convenience over warfarin. We reviewed the cost concern but emphasized the importance of anticoagulation. We discussed the absence of bleeding signs as positive and agreed on maintaining the current exercise regimen. Potential risks of bleeding and monitoring signs were covered, and the patient understands to report any new symptoms. Follow-up is arranged for one year, with earlier review if necessary. Patient was informed and verbally consented to the use of an ambient scribe for clinic note documentation during this visit Time spent on chart review, documentation, interview, assessment Orders: Orders Complete Blood Count Auto Diff Today I48.20 - Chronic atrial fibrillation, unspecified Basic Metabolic Panel Today I48.20 - Chronic atrial fibrillation, unspecified Patient Instructions: - Continue taking Xarelto as prescribed. - Stay active with your regular exercise routine. - Watch for signs of bleeding, such as blood in urine or stool. - Follow up in one year unless you notice symptoms sooner. - Contact us if you experience any chest pains, shortness of breath, or other new symptoms. Coding Level of Care Code Est Pt Level 3 (34243) Complex EM visit Add On G2211 Diagnoses Chronic atrial fibrillation I48.20 HTN (hypertension) I10 Tricuspid regurgitation I07.1 Atrial enlargement, bilateral I51.7 CPT Codes EKG - CPT: 63429-Qkfibpwkrilfubchf, Complete ([id number]) Time Spent (min) 24
--- OUTSIDE RECORDS SUMMARY | 2024-07-30 10:23 | XMS_ITS ---
Author Organization [facility] Address [address] [place] [phone] Care Team Providers Care Hydrogen Treater Name Role Phone Cam Rivas M.D Primary Care Provider Gonzalez Haddad Jr REASON FOR VISIT screening Encounters Encounter Location Date Provider Diagnosis [facility] Outpatient [address] [place] [phone] 01/24/2024 Gonzalez Blake Jr Colon cancer screening Z12.11 and Personal history of colonic polyps Z86.0100 Assessments Encounter Date Diagnosis (ICD Code) Assessment Notes Treatment Notes Treatment Clinical Notes Section Notes 01/24/2024 Colon cancer screening (ICD-10 - Z12.11) 01/24/2024 Personal history of colonic polyps (ICD-10 - Z86.0100) Plan Of Treatment No Information Progress Notes * MALINDA BRITTON LDOB:1945 (79 yo M)Acc No.[id number]:01/24/2024 COLON WITH MAC Patient:?MALINDA BRITTON Provider:?Gonzalez Blake MD :1945???Age:78 Y???Sex:Male West e:01/24/2024 Address:[address] [facility] Pcp:Vitaly Guzman Subjective: * Chief Complaints: * ???1. Screening. * Medical History:? Objective: * Vitals:? Assessment: * Assessment: 1.?Colon cancer screening - Z12.11 (Primary)???2.?Personal history of colonic polyps - Z86.0100??? Plan: * Treatment: * Procedure Codes:?52617 DIAGN OSTIC COLONOSCOPY, 0529F INTRVL 3+YRS PTS CLNSCP DOCD, 0528F RCMND FLW-UP 10 YRS DOCD * * The named appointment provid er may or may not be the originator of this progress note, and it is not deemed complete until electronically signed by the appointment provider. Sign off status: Pending * Provider:?Gonzalez Blake MD Date:?1 03/25/2023 Generated for Misti pearl/Christopher/Daijaitting on:?07/30/2024 10:23 AM EDT
--- OUTSIDE RECORDS SUMMARY | 2024-07-30 10:23 | XMS_ITS | Encounter Summary ---
Author Organization [employer] Address [address] [place] [address] Care Team Providers Care Passenger Service Representative Name Role Phone Unavailable Primary Care Provider Unavailabl e Reason for Visit * Reason Onset Date Comments payment for services 05/21/2024 Encounter Details Date Type Department Care Team (Late Contact Info) Description 05/21/2024 Telephone [facility] [address] [place] [address] Rajinder [place] [address] [place], [place] [phone] payment for services Social History Tobacco Use [...] as Shobha is out of network for [facility]. Asmita is reaching out to patient to discuss payment on date of service DR documented in this encounter Plan of Treatment Upcoming Encounters Date Type Department Care Team (Late st Contact Info) Description 07/31/2024 10:00 AM EDT Office Visit [facility] [address] [place] [address] [place] Mary Loukatarzyna [address] [place] [address] documented as of this encounter Visit Diagnoses Not on filedocumented in this encounter
--- OUTSIDE RECORDS SUMMARY | 2024-07-30 10:23 | XMS_ITS | Clinical Summary ---
Author Organization [employer] Address [address] [place] [address] Care Team Providers Care Director Of Marketing Operations Name Role Phone Unavailable Primary Care Provider [...] Description 07/06/2024 10:00 AM EDT Office Visit [facility] [address] [place] [address] Rajinder [place] 06/22/2024 Telephone [facility] [address] [place], [place] [phone] Marifer Washingtonmarielena 06/08/2024 10:30 AM EDT Office Visit [facility] [address] [place] [address] Rajinder [place] 05/21/2024 Telephone [facility] [address] [place] [address] Rajinder [place] payment for services from Last 3 Months [...] Mass Index - - Plan of Treatment Upcoming Encounters Date Type Department Care Team (Late st Contact Info) Description 07/31/2024 10:00 AM EDT Office Visit [facility] [address] [place] [address] Rajinder [place] [address] [place] [address] Health Maintenance Due Date Last Done Comments Depression Screening 1945 Lipid Panel 1945 SDOH Screening 1945 Alcohol/Substance Use Screening 1959 Hepatitis C Screening 07/26/1965 Zoster Vaccines (1 of 2) 07/26/1997 Dental X-Ray: Bitewings 06/05/2021 06/05/19 21, 09/01/2017, 01/01/2015, Additional history exists RSV Patients [...] patient's age to complete this topic Meningococcal B Vaccine Aged Out No l onger eligible based on patient's age to complete [...] Relevant to Health Maintenance Insurance DENTAL - [facility] PPO
--- OUTSIDE RECORDS SUMMARY | 2024-07-30 10:23 | XMS_ITS ---
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 of anticoagulants (Z79.01) Active confirmed Vital Signs Temperature 98.6 degrees Fahrenheit 12/14/19 24 Blood pressure systolic 000 mm Hg 10/02/20 24 Blood pressure diastolic 00 mm Hg 024 Height 70 in 12/14/2023 Weight 159 lb 8 oz lbs 12/14/2023 BMI 22.88 kg/m2 12/14/2023 Encounters Encounter Location Date Provider Diagnosis [facility] [address] [place] [address] 12/14/2023 Gonzalez Blake Jr long 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 care 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 (current) use of anticoagulants Z79.01 and Colon cancer screening Z12.11 Assessments Encounter Date Diagnosis (ICD Code) Assessment Notes Treatment Notes Treatment Clinical Notes Section Notes 12/14/2023 long term care 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 (current) use of anticoagulants (ICD-10 - Z79.01) [...] * MALINDA BRITTON LDOB:1945 (78 yo M)Acc No.[id number]:12/14/2023 Progress Notes Patient:?MALINDA RBITTON Provider:?Gonzalez Blake MD :1945???Age:78 Y???Sex:Male West e:12/14/2023 Address:[facility] [address] [facility] [facility] Pcp:Vitaly Guzman Subjective: * Chief Complaints: * [...] or edema.?PSYCH:?cognitive function intact.? Assessment: * Assessment: 1.?long term care 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 (current) use o f anticoagulants - Z79.01 [...] Blake MD Date:?1 Generated for Printi dae/Christopher/eTransmitting on:?07/30/2024 10:23 AM EDT History and Physical Notes * HPI [...]
--- OUTSIDE RECORDS SUMMARY | 2024-07-30 10:23 | XMS_ITS | Encounter Summary ---
Author Organization [facility] Address [address] [place] [address] Care Team Providers Care Test Administrator Name Role Phone Cam Rivas MD Primary Care Pr ovider Reason for Visit * Reason Onset Date Comments Error 07/03/2024 Encounter Details Date Type Department Care Team ([facility] st Contact Info) Description 07/03/2024 Telephone Adult Medicine [address] [phone] Cam Rivas MD [address] [place] [phone] Error Social History Tobacco Use Types Packs/Day Years Used Date Smoking Tobacco: Former Cigarettes 0.3 60 S tarted: 1963 Smokeless Tobacco: Never Alcohol Use Standard Drinks/Week Comments Yes 7 (1 standard drink = 0.6 oz pur e alcohol) Sex and Gender Information Value Date Recorded Sex Assigned at Not on file Legal Sex Male 5:30 PM EST Gender Identity Not on file Sexual Orientation Not on file documented as of this encounter Progress Notes * Fernanda Greene - 07/03/2024 9:11 AM EDT Prior Authorization for Medication-do not complete and send this encounter unless you have the fax from the pharmacy. Is this a Cover My Meds request: [place] [place] [facility] Dabigatran Etexilate Dose of Medication 150mg What is the RX # from the faxed refill? How does patient take this med? By mouth 2x daily What Pharmacy did the fax come from: [facility] Pharmacy fax #: [phone] [employer] Information from fax: What Prescription Plan does the patient have? BIN/PCN if applicable: [id number] Cardholder ID: [id number] Person Code: Relationship Code: Help desk phone: [phone] documented in this encounter Plan of Treatment Upcoming Encounters Date Type Department Care Team (Late st Contact Info) Description 10/02/2024 10:30 AM EDT Office Visit Adult Medicine [address] [phone] Mignon Siddiqi PA [address] [place] [address] documented as of this encounter Visit Diagnoses Diagnosis Primary hypertension Unspecified essential hypertension documented in this encounter Additional Health Concerns Infection Onset Date Last Indicated Resolved Time Herpes simplex 04/02/2024 04/02/2024 documented as of this encounter Care Teams Test Administrator Relationship Specialty Start Date End Date Cam Rivas MD [address] [place] [phone] PCP - General 06/10/22 documented as of this encounter
--- OUTSIDE RECORDS SUMMARY | 2024-07-30 10:23 | XMS_ITS | Encounter Summary ---
Author Organization [employer] Address [address] [facility] [address] [place] [address] Care Team Providers Care Contract Project Manager Name Role Phone Unavailable Primary Care Provider Unavailabl e Encounter Details Date Type Department Care Team (Latest Contact Info) Description 08/22/2020 Abstract [facility] Dental, Provider, DDS Social History Tobacco Use Types Packs/Day Years Used Date Smoking Tobacco: Never Assessed Sex and Gender Information Value Date Recorded Sex Assigned at Male 01/11/2022 10:20 AM EDT Legal Sex Male 10:20 AM EDT Gender Identity Male 01/11/2022 10:20 AM EDT Sexual Orientation Straight 01/11/2022 10 :20 AM EDT documented as of this encounter Plan of Treatment Upcoming Encounters Date Type Department Care Team ( st Contact Info) Description 07/31/2024 10:00 AM EDT Office Visit [facility] [address] [place] [address] [place]Mary Lou krauskatarzyna [address] [place] [address] documented as of this encounter Visit Diagnoses Not on filedocumented in this encounter
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
--- OUTSIDE RECORDS SUMMARY | 2024-07-30 10:24 | XMS_ITS | Patient Health Record ---
Author Organization [facility] Address [address] [place] [phone] Care Team Providers Care Humanities Instructor Name Role Phone Cam Rivas M.D Primary Care Provider Unavailable Gonzalez Blake Jr Unavailable [phone] Allergies No Known Allergies Reason For [...] Problem Status W/U Status Risk Notes Problem 285339360 Colon cancer screening (Z12.11) Active confirmed Problem 569276331 senior care (current) use of anticoagulants (Z79.01) Active confirmed Problem [id number] Encounter for other preprocedural examination (Z01.818) Active confirmed Problem Diverticulosis of sigmoid colon (979173301) Diverticulosis of sigmoid colon (K57.30) Active confirmed Vital Signs Temperature 98.6 degrees Fahrenheit 12/14/2023 Blood pressure diastolic 00 mm Hg 12/14/2023 Height 70 in 12/14/2023 Blood pressure systolic 000 mm Hg 12/14/2023 Weight 159 lb 8 oz lbs 12/14/2023 BMI 22.88 kg/m2 12/14/2023 Encounters Encounter Location Date Provider Diagnosis [facility] [address] [place], [place] [id number] 01/24/2024 Gonzalez Blake Jr Colon cancer screening Z12.11 and Personal history of colonic polyps Z86.0100 [facility] [address] [place] [address] 12/14/2023 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 12/14/2023 senior care (current) use of anticoagulants (ICD-10 - Z79.01) [...] Insured Coverage Start Date Coverage End Date [facility] [address] [place], [place] [phone] [id number] MALINDA BRITTON Self - patient is the insured MEDICARE OF [facility] [address] [place] [address] [phone] [id number] MALINDA BRITTON Self - patient is the insured Medical (General) History Medical History History ICD Code Atrial fibrillation Peptic ulcer disease, upper endoscopy , positive H. pylori, treated with Prevpac. Colonoscopy 11/11/20, multiple tubular ad enomas, three-year followup Surgical History Surgery Date(Month/Year) bone spur on ankle
== END 2024-07-30 10:31 | disposition home or self-care (01) ==
PROVIDERS: Visit Provider Nurse Practitioner Family
DX: I48.20 Chronic atrial fibrillation, unspecified (principal); I10 Essential (primary) hypertension; I07.1 Rheumatic tricuspid insufficiency; I51.7 Cardiomegaly
CPT/HCPCS: 93010; 99213; G2211

== ENCOUNTER → 2024-07-30 09:56 | Outpatient (BNVA) | payer MEDICARE, SELFPAY | PROVIDERS: Visit Provider Nurse Practitioner Family | DX: I48.20 Chronic atrial fibrillation, unspecified (principal); I10 Essential (primary) hypertension; I51.7 Cardiomegaly | CPT/HCPCS: 93005; 99212 ==

== ENCOUNTER → 2025-01-24 11:22 | Outpatient (BNVA) | payer SELFPAY | PROVIDERS: Visit Provider Emergency Medicine | DX: Z02.79 Encounter for issue of other medical certificate (principal) ==